=== PATIENT | male | born 1950 | race African-American/Black ===

== ENCOUNTER 2018-03-20 07:33 | Day surgery (SDC) | payer OTHER ==
--- OUTSIDE RECORDS SUMMARY | 2018-03-20 07:37 | XMS REPORT ---
:1950 [facility] [address] Lucia [address] [place] [id number] Care Team Providers Name Role Phone UNKNOWN, REFFERING Primary Care Provider Unavailable MILES SMITH M.D. Unavailable Unavailable Problems This patient has no known problems. Allergies, Adverse Reactions, Alerts This patient has no known allergies or adverse reactions. Medications This patient has no known medications. Results Test Description Test Time Test Comments Text Results Atomic Results Result Comments POC Glucose, Blood 2017-09-27 12:05:00 Test Item Value Reference Range Comments POC Glucose (test code=POCGLUC) 95 mg/dL 70-115 If you consider your patient critically ill, the Ivon Accu-Chek InformII metershould not be used for Glucose determinations.Draw a venous Glucose and send to the Main Lab for Analysis.
[2018-03-20] MEDS ORDERED: NS 0.9% VIAL 10 ML ONE (07:58)
[2018-03-20] MEDS ORDERED: EPINEPHRINE/PF 1 MG/ML AMP ONE (07:58)
[2018-03-20] MEDS ORDERED: DUOVISC 1 KIT OPTH ONE (07:59)
[2018-03-20] MEDS ORDERED: MOXIFLOXACIN HCL 10 DROPS/ML **OR USE OPTH ONE ×2 (08:00)
[2018-03-20] MEDS ORDERED: LIDOCAINE 2% MPF 5 ML VIAL ONE (08:08)
[2018-03-20] MEDS ORDERED: NA CHLORIDE 0.9% 500 ML ONE (08:09)
[2018-03-20] MEDS ORDERED: TETRACAINE HCL 0.5% 2ML OPTH ONE (08:09)
[2018-03-20] MEDS ORDERED: BUPIVACAINE 0.25% PF 30 ML VIAL ONE (08:10)
[2018-03-20] MEDS ORDERED: LIDOCAINE HCL/PF 3.5% OPTH GEL ONE (08:10)
[2018-03-20] MEDS: PHENYLEPHRINE 10% OPTH 5ML ONE ×3 (08:20→08:30)
[2018-03-20] MEDS: CYCLOPENTOLATE 1% OPTH 2 ML ONE ×3 (08:20→08:30)
[2018-03-20] MEDS ORDERED: FENTANYL CITR 100 MCG/2 ML ONE (08:24)
[2018-03-20] MEDS ORDERED: MIDAZOLAM HCL 2 MG/2 ML INJ ONE (08:24)
[2018-03-20] MEDS ORDERED: D50W 25 GM/50 ML SYRINGE IV ONE (08:50)
[2018-03-20] MEDS: BALANCED SALT IRRIG PLAIN 500 ML BTL IRR ONE ×2 (09:13→09:16)
[2018-03-20] MEDS: LIDOCAINE 1% MPF 2 ML AMPULE ONE ×2 (09:14→09:20)
--- NOTE | 2018-03-20 09:48 | P.BOP ---
Preoperative diagnosis: Nuclear sclerotic and cortical cataract OD Postoperative diagnosis: Same Primary procedure: Phacoemulsification with IOL OD Estimated blood loss: None Anesthesia: Local (Topical) Complications: None Implants: SN60WF +14.0 Transferred to: Other (Day surgery) Condition: Good
--- NOTE | 2018-03-20 20:53 | OP ---
Date of Procedure: 03/20/2018 Surgeon: Jessica Toure MD Anesthesiologist: 1. Paul. 2. SHMUEL Barnard. 3. Bin Carr MD. Preoperative Diagnosis: Nuclear sclerotic cataract, and cortical cataract, right eye. Operation Performed: Phacoemulsification with intraocular lens implant, right eye. Anesthesia: Per cataract surgery. Complications: None. Description Of Procedure: In the operating room, the patient was prepped and draped in the usual sterile fashion for ophthalmic surgery. A lid speculum was placed in the right eye. Two paracentesis sites were made superiorly and inferiorly in the limbal cornea. Viscoat was placed in the anterior chamber and a crescent blade was used to make a corneal groove and tunnel, and a keratome was used to enter the anterior chamber. Provisc was placed in the anterior chamber and a 360 degree capsulotomy was performed with a cystitome. The lens was hydrodissected with BSS and rotated freely. The lens was removed with a stop and chop technique. A 4.55 phaco CDE was used to remove the lens. Residual cortex was removed with the irrigation and aspiration. Provisc was placed in the capsular bag. A SN60WF +14.0 diopter lens was placed in the capsular bag without complications. Irrigation and aspiration was used to remove residual viscoelastic. The paracentesis sites were hydrated with BSS. The wound and paracentesis sites were inspected and found to be watertight. Vigamox 0.07 cc was placed intracamerally at the end of the procedure. The eye was irrigated with balanced salt solution. The eye was patched with a soft cotton patch and Ritter metal shield. The patient was returned to day surgery in good condition. Comments: Akten was placed in the eye in Day surgery and irrigated out of the eye with BSS in the OR. Preservative-free 1% lidocaine was placed in the anterior chamber prior to Viscoat. Discharge Instructions: Mr. Martinez is discharged to home in good condition. He is to follow up with Dr. Toure in the morning. BRODIE/GABRIELA Voice ID: [id number] Report ID: [id number] MARYJANE
== END 2018-03-20 10:44 | disposition home or self-care (01) ==
LOC: OR 07:33
PROVIDERS: ATTEND Ophthalmology Retina Specialist
PROC: 08RJ3JZ Replacement of Right Lens with Synthetic Substitute, Percutaneous Approach (ICD-10-PCS; principal; 2018-03-20 08:30)
DX: H25.11 Age-related nuclear cataract, right eye (principal); H25.011 Cortical age-related cataract, right eye; E11.9 Type 2 diabetes mellitus without complications; I10 Essential (primary) hypertension; Z83.511 Family history of glaucoma; Z83.518 Family history of other specified eye disorder; Z83.3 Family history of diabetes mellitus; Z80.9 Family history of malignant neoplasm, unspecified
CPT/HCPCS: 66984; 82962 ×2; J0171; J2001; J2250; J3010

== ENCOUNTER 2020-04-22 23:53 | Emergency (ER) | payer OTHER ==
--- OUTSIDE RECORDS SUMMARY | 2020-04-22 23:55 | XMS REPORT | Continuity of Care Document ---
:1950 Author Organization [facility] t Address [address] [place] [address] Dr. Lucia [address] [place] [id number] Care Team Providers Name Role Phone UNKNOWN Primary Care Physician Unavailable MILES SMITH M.D. Attending Clinician Unavailable MILES SMITH M.D., A Admitting Clinician Unavailable Problems This patient has no known problems. Allergies, Adverse Reactions, Alerts This patient has no known allergies or adverse reactions. Medications This patient has no known medications. Procedures This patient has no known procedures. Results Test Description Test Time Test Comments Results Result Comments Source POC Glucose, Blood 2017-09-27 12:05:00 Test Item Value Reference Range Interpretation Comme nts POC Glucose (test code = 95 mg/dL 70-115 N If you consider your patient critically POCGLUC) ill, the Ivon Accu-Chek InformII metershould not be used for Glucose determinations. Draw a venous Glucose and send to the Main Lab for Analysis.
[2020-04-23] MEDS ORDERED: LIDOCAINE 1% 20 ML MDV ONE (00:25)
[2020-04-23] MEDS ORDERED: TETANUS & DIPHTHERIA TOX,ADULT 0.5 ML VIAL ONE (00:27)
--- NOTE | 2020-04-23 00:50 | ER ---
Nurse's Notes [facility] Name: Luís Martinez Age: 69 yrs Sex: Male : 1950 Arrival Date: 04/22/2020 Time: 23:54 Bed 7 Private MD: Diagnosis: Laceration right 2 nd toe Presentation: 04/23 00:02 Chief complaint: Patient states: I was removing a dressing from a sore spot, ulcer on sg my big toe, when I cut my other toe with the scissors I was using to remove the tape and dressing stuff, reports laceration to toe at this time. Is seeing for ulcer on toe, reports seems like healing well at this time. Coronavirus screen: Patient denies a cough. Patient denies shortness of breath or difficulty breathing. Patient denies measured and/or subjective temperature greater than 100.4F prior to today's visit. Patient denies travel on a cruise ship or to a country the [facility] currently lists as an affected area. Patient denies contact with known and/or suspected case of COVID-19. Proceed with normal triage. Ebola Screen: Patient negative for fever greater than or equal to 101.5 degrees Fahrenheit, and additional compatible Ebola Virus Disease symptoms Patient denies exposure to infectious person. Patient denies travel to an Ebola-affected area in the 21 days before illness onset. No symptoms or risks identified at this time. Initial Sepsis Screen: Does the patient meet any 2 criteria? No. Patient's initial sepsis screen is negative. Does the patient have a suspected source of infection? No. Patient's initial sepsis screen is negative. Risk Assessment: Do you want to hurt yourself or someone else? Patient reports no desire to harm self or others. Onset of symptoms was April 23, 2020. Care prior to arrival: None. Transition of care: patient was not received from another setting of care. 00:02 Method Of Arrival: Ambulatory sg 00:02 Acuity: ANTOINE 3 sg Historical: - Allergies: 00:04 No Known Allergies; sg - PMHx: 00:04 Diabetes - NIDDM; Hypertension; sg - PSHx: 00:04 right great toe; sg - Immunization history:: Adult Immunizations not up to date. - Social history:: Smoking status: Patient denies any tobacco usage or history of. Screenin:11 Abuse screen: Denies threats or abuse. Denies injuries from another. Nutritional sg screening: No deficits noted. Tuberculosis screening: No symptoms or risk factors identified. Never had TB. Fall Risk None identified. Assessment: 00:11 General: Appears in no apparent distress. well groomed, well developed, well nourished, sg Behavior is calm, cooperative, appropriate for age. Pain: Complains of pain in right second toe Quality of pain is described as burning. Neuro: Level of Consciousness is awake, alert, obeys commands, Oriented to person, place, time, situation, Property Appraiser are equal bilaterally Moves all extremities. Gait is steady, Speech is normal, Facial symmetry appears normal. Cardiovascular: Patient's skin is warm and dry. Chest pain is denied. Respiratory: Airway is patent Respiratory effort is even, unlabored, Respiratory pattern is regular, symmetrical, Denies cough, shortness of breath labored breathing, pain with respiration, pain with cough, pain with movement, air hunger. GI: No signs and/or symptoms were reported involving the gastrointestinal system. : No signs and/or symptoms were reported regarding the genitourinary system. EENT: No signs and/or symptoms were reported regarding the EENT system. 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 Musculoskeletal: Circulation, motion, and sensation intact. Range of motion: intact in all extremities. Injury Description: Laceration sustained to right second toe is clean, full thickness, 0.5 to 2.5 cm long, was sustained less than 30 minutes ago. a small amount of bleeding noted at this time. 00:25 Reassessment: at bedside for laceration repair. sg Vital Signs: 00:00 BP 163 / 90; Pulse 89; Resp 14; Temp 98.3(O); Pulse Ox 100% ; sg ED Course: 04/22 23:54 Patient arrived in ED. cl3 04/23 00:00 Arm band placed on. sg 00:02 Memo Oliva, RN is Primary Nurse. sg 00:03 Triage completed. sg 00:05 Milan Santana MD is Attending Physician. pkl 00:25 Assist provider with laceration repair on right second toe that was 2.5 cm. or less sg using sutures. Set up tray. Performed by Milan Santana MD Dressed with 4X4s, Kerlix, Patient tolerated well. 00:48 Dressings: non-adherent dressing x 1 right second toe Tegaderm X 1; right second toe sg 4X4s X 1; right second toe. Administered Medications: 00:20 Drug: Lidocaine (1 %) 1 vials Volume: 20 ml; Route: Infiltration; sg 00:30 Drug: Tetanus-Diphtheria Toxoid Adult 0.5 ml {[employer] Field Agent: [employer]. Exp: sg 11/15/2022. Lot #: [id number]. } Route: IM; Site: left deltoid; Outcome: 00:49 Discharge ordered by . pkjose 00:57 Patient left the ED. sg Signatures: Memo Oliva RN RN Milan House MD MD pkSarahi Andrews cl3
--- NOTE | 2020-04-23 00:50 | EDPHYS ---
Physician Documentation [facility] Name: Luís Martinez Age: 69 yrs Sex: Male : 1950 Arrival Date: 04/22/2020 Time: 23:54 Bed 7 Private MD: ED Physician Milan Santana HPI: 04/23 00:40 This 69 yrs old Black Male presents to ER via Ambulatory with complaints of Toe Injury. pkl 00:40 The patient presents with a laceration, 4 cm(s). The complaints affect the right 2 nd pkl toe. Context: Patient accidentally cut his right 2 nd toe with a pair of scissors.. Onset: The symptoms/episode began/occurred just prior to arrival. Historical: - Allergies: 00:04 No Known Allergies; sg - PMHx: 00:04 Diabetes - NIDDM; Hypertension; sg - PSHx: 00:04 right great toe; sg - Immunization history:: Adult Immunizations not up to date. - Social history:: Smoking status: Patient denies any tobacco usage or history of. ROS: 00:40 MS/extremity: Positive for laceration of the right 2 nd toe. pkl 00:40 Eyes: Negative for injury, pain, redness, and discharge, ENT: Negative for injury, pain, and discharge, Neck: Negative for injury, pain, and swelling, Cardiovascular: Negative for chest pain, palpitations, and edema, Respiratory: Negative for shortness of breath, cough, wheezing, and pleuritic chest pain, Abdomen/GI: Negative for abdominal pain, nausea, vomiting, diarrhea, and constipation, Back: Negative for injury and pain, : Negative for injury, bleeding, discharge, and swelling, Neuro: Negative for headache, weakness, numbness, tingling, and seizure. Exam: 00:40 Head/Face: Normocephalic, atraumatic. Eyes: Pupils equal round and reactive to light, pkl extra-ocular motions intact. Lids and lashes normal. Conjunctiva and sclera are non-icteric and not injected. Cornea within normal limits. Periorbital areas with no swelling, redness, or edema. ENT: Nares patent. No nasal discharge, no septal abnormalities noted. Tympanic membranes are normal and external auditory canals are clear. Oropharynx with no redness, swelling, or masses, exudates, or evidence of obstruction, uvula midline. Mucous membranes moist. Neck: Trachea midline, no thyromegaly or masses palpated, and no cervical lymphadenopathy. Supple, full range of motion without nuchal rigidity, or vertebral point tenderness. No Meningismus. Chest/axilla: Normal chest wall appearance and motion. Nontender with no deformity. No lesions are appreciated. Cardiovascular: Regular rate and rhythm with a normal S1 and S2. No gallops, murmurs, or rubs. Normal PMI, no JVD. No pulse deficits. Respiratory: Lungs have equal breath sounds bilaterally, clear to auscultation and percussion. No rales, rhonchi or wheezes noted. No increased work of breathing, no retractions or nasal flaring. Abdomen/GI: Soft, non-tender, with normal bowel sounds. No distension or tympany. No guarding or rebound. No evidence of tenderness throughout. Back: No spinal tenderness. No costovertebral tenderness. Full range of motion. Neuro: Awake and alert, GCS 15, oriented to person, place, time, and situation. Cranial nerves II-XII grossly intact. Motor strength 5/5 in all extremities. Sensory grossly intact. Cerebellar exam normal. Normal gait. 00:40 Musculoskeletal/extremity: Extremities: grossly normal except: noted in the right 2n nd toe: laceration. Vital Signs: 00:00 BP 163 / 90; Pulse 89; Resp 14; Temp 98.3(O); Pulse Ox 100% ; sg Laceration: 00:40 Wound Repair of 4cm ( 1.6in ) subcutaneous laceration to right 2 nd toe. Minimal pkl bleeding noted.. Distal neuro/vascular/tendon intact. Anesthesia: Local anesthetic administered with 3 mls of 1% lidocaine. Wound prep: Extensive cleansing by dc. Skin closed with 4 4-0 Prolene using simple sutures and sterile technique. Dressed with Neosporin, non-adherent dressing. Patient tolerated well. MDM: 00:06 Patient medically screened. pkl 00:40 Data reviewed: vital signs, nurses notes. pkl 04/23 00:24 Order name: Prolene, Sutures; Complete Time: 00:24 sg 04/23 00:24 Order name: Dressing - Wound; Complete Time: 00:24 sg 04/23 00:24 Order name: Gloves, Sterile; Complete Time: 00:24 sg 04/23 00:24 Order name: Setup Suture Tray; Complete Time: 00:24 Administered Medications: 00:20 Drug: Lidocaine (1 %) 1 vials Volume: 20 ml; Route: Infiltration; 00:30 Drug: Tetanus-Diphtheria Toxoid Adult 0.5 ml {Director Mba: [email or web address]. Exp: 11/15/2022. Lot #: [id number]. } Route: IM; Site: left deltoid; Disposition: 04/23/20 00:49 Discharged to Home. Impression: Laceration right 2 nd toe. - Condition is Stable. - Medication Reconciliation Form, Thank You Letter, Antibiotic Education, Prescription Opioid Use form. - Follow up: Private Physician; When: 7 - 10 days; Reason: Wound Recheck, Staple/Suture removal, Re-evaluation by your physician. - Problem is new. - Symptoms have improved. Signatures: Memo Oliva RN RN sg Lam, Pin, MD MD pkl Corrections: (The following items were deleted from the chart) 00:57 00:49 04/23/2020 00:49 Discharged to Home. Impression: Laceration right 2 nd toe. sg Condition is Stable. Forms are Medication Reconciliation Form, Thank You Letter, Antibiotic Education, Prescription Opioid Use. Follow up: Private Physician; When: 7 - 10 days; Reason: Wound Recheck, Staple/Suture removal, Re-evaluation by your physician. Problem is new. Symptoms have improved. pkl
[2020-04-23 01:02] VITALS: BP 163/90; TEMP 98.3; O2SAT 100
== END 2020-04-23 00:57 | disposition home or self-care (01) ==
LOC: ER 23:53
PROC: 0JQQ0ZZ Repair Right Foot Subcutaneous Tissue and Fascia, Open Approach (ICD-10-PCS; principal; 2020-04-23)
DX: S91.114A Laceration without foreign body of right lesser toe(s) without damage to nail, initial encounter (principal); W45.8XXA Other foreign body or object entering through skin, initial encounter; Y93.9 Activity, unspecified; Y92.9 Unspecified place or not applicable; I10 Essential (primary) hypertension; Z23 Encounter for immunization
CPT/HCPCS: 90714